=== PATIENT | male | born 1975 | race Caucasian/White ===

== ENCOUNTER → 2021-01-25 | Outpatient (CLI) | payer OTHER ==
[~2021-01-25] MED LIST: NAPR-514 PO; TRAZ-120 PO
== END ==
LOC: LAB 14:48
PROVIDERS: ATTEND Nurse Anesthetist, Certified Registered
DX: Z01.812 Encounter for preprocedural laboratory examination (principal); K64.9 Unspecified hemorrhoids; Z20.822 Contact with and (suspected) exposure to COVID-19
CPT/HCPCS: U0003; U0005

== ENCOUNTER → 2021-01-30 | Day surgery (SDC) | payer OTHER ==
[~2021-01-30] MED LIST changes: +IPRATRPIUM/ALBUTEROL 0.5/2.5MG 3 ML NEBU. NEB PRN; +IV RINGERS SOLUTION,LACTATED 1,000 ML IV SCH; +LIDOCAINE 2% PF 5 ML VIAL. ONE; +MIDAZOLAM HCL PF 2 MG/2 ML VIAL. IV ONE; +ONDANSETRON PF 4 MG/2 ML VIAL. IV PRN; +PROPOFOL 10,000 MCG/ML (20ML) VIAL IV ONE
[2021-01-30 12:03] VITALS: BP 132/66
== END | disposition home or self-care (01) ==
LOC: SURG 09:00
PROVIDERS: ATTEND Surgery
DX: K92.1 Melena (principal); K64.9 Unspecified hemorrhoids; Z98.890 Other specified postprocedural states; G47.30 Sleep apnea, unspecified; Z79.899 Other long term (current) drug therapy
CPT/HCPCS: 45378; J2001; J2704; J7120